=== PATIENT | male | born 1975 | race Two or more races ===

== ENCOUNTER 2017-10-04 15:19 | Emergency (ER) | payer MEDICAID ==
[~2017-10-04] VITALS: Ht 172.7 cm; Wt 92.5 kg
[2017-10-04 15:32] VITALS: Ht 172.7 cm; Wt 92.5 kg
[2017-10-04 16:22] VITALS: BP 136/85
== END 2017-10-04 16:22 | disposition home or self-care (01) ==
LOC: ED 15:19
DX: H10.9 Unspecified conjunctivitis (principal)